=== PATIENT | female | born 1940 | race Caucasian/White ===

== ENCOUNTER → 2016-11-22 | Day surgery (SDC) | payer MEDICARE, OTHER, BC ==
[~2016-11-22] MED LIST: ACETAMINOPHEN 1000 MG/100 ML VIAL IV ONE; BUPIVACAINE/EPINEPHRINE 0.5% 50 ML VIAL ONE; HYDR12.56 PO; KETOROLAC TROMETHAMINE 30 MG/ML (IVP) VIAL IV PUSH ONE; LACTATED RINGER'S 1000 ML INJ 1,000 ML ONE; LEXA5SOL PO; LIDOCAINE 1%/EPINEPHrine 1:100,000 SOLN 20 ML VIAL ONE; MIDAZOLAM HCL 2 MG/2 ML VIAL ONE; ONDANSETRON HCL 4 MG/2 ML VIAL IV PUSH ONE; PROPOFOL 200 MG/20 ML AMP IV ONE; SIMV10TA OR
--- NOTE | 2016-11-23 19:29 | MP ---
cc: ELAINE MARR DATE OF SURGERY 11/22/2016 PREOPERATIVE DIAGNOSIS Lipoma of mid back. POSTOPERATIVE DIAGNOSIS Lipoma of mid back. PROCEDURE Excision lipoma mid-back SURGEON Lazaro Marr MD ANESTHESIA General PROCEDURE IN DETAIL The patient was brought to the operating room and after satisfactory sedation by anesthesia, the patient was placed in the left lateral decubitus position and the back was prepped and draped in the usual sterile fashion. 0.5% Marcaine with epinephrine was used to infiltrate the skin for local anesthesia. A skin incision was made in Aditya's lines and carried out sharply through the subcutaneous tissue with the cautery being used for hemostasis. Incision was deepened with the cautery down to the capsule of the lipoma which was then dissected free bluntly with the cautery being used for dissection and hemostasis as well. Once the lipoma has been removed, it was seen to be 7.5 x 6 cm. Hemostasis was strictly assured. The deeper tissues were closed in two separate layers using interrupted 3-0 Vicryl sutures. The skin was then closed with interrupted 4-0 PDS subcuticular stitches. The remainder of the 20 mL of the Marcaine was infiltrated into the surrounding tissues for further local anesthesia. Steri-Strips and a sterile dressing were placed and the patient was then awakened and taken from the operating room in satisfactory condition having tolerated the procedure without problem. ATTENDING PHYSICIAN Very much MD PERFECTO Hanna/ /11:32 AM /7:17 PM
== END | disposition home or self-care (01) ==
LOC: ESDC 07:53
PROVIDERS: ATTEND Surgery
DX: D17.1 Benign lipomatous neoplasm of skin and subcutaneous tissue of trunk (principal)
CPT/HCPCS: 00300; 21931; 88304; J0131; J1885; J2250; J2405; J3010; J7120